=== PATIENT | male | born 1985 | race Caucasian/White ===

== ENCOUNTER 2016-10-06 14:02 | Emergency (ER) | payer SELFPAY ==
[2016-10-06 14:46] VITALS: BP 143/80
--- NOTE | 2016-10-06 15:36 | UC ---
Skin Complaint HPI - HPI Summary HPI Summary: Patient has had a lump on the right ear lobe for the past 3 years, the past 2 weeks it is red and tender thinks it is causing his migraines. left eye id is red and swollen - History of Current Complaint Chief Complaint: UCEye Time Seen by Provider: 10/06/16 15:01 Stated Complaint: SWOLLEN UNDER EAR EYE ISSUE Hx Obtained From: Patient Onset/Duration: Sudden Onset, Lasting Days Skin Exposure Onset/Duration: Minutes Ago Timing: Constant Onset Severity: Moderate Current Severity: Moderate Location: Discrete, Ear (Right) Character: Redness, Raised, Painful Aggravating: Touch Alleviating: Nothing - Allergy/Home Medications Allergies/Adverse Reactions: Allergies Allergy/AdvReac Type Severity Reaction Status Date / Time No Known Allergies Allergy Verified 01/22/16 12:47 Home Medications: Home Medications Acetaminophen [Eq Pain Reliever] 650 mg PO 10/06/16 [History] Review of Systems Constitutional: Negative Skin: Other - rec large cyst and Eyes: Eye Redness ENT: Negative Respiratory: Negative Cardiovascular: Negative Gastrointestinal: Negative Genitourinary: Negative Motor: Negative Neurovascular: Negative Musculoskeletal: Negative Neurological: Negative Psychological: Negative All Other Systems Reviewed And Are Negative: Yes PMH/Surg Hx/FS Hx/Imm Hx Previously Healthy: Yes Endocrine History Of: Denies: Diabetes, Thyroid Disease Cardiovascular History Of: Denies: Cardiac Disorders, Hypertension, Pacemaker/ICD Respiratory History Of: Denies: COPD, Asthma GI/ History Of: Denies: Gastroesophageal Reflux, Ulcer, Renal Disease Neurological History Of: Denies: CVA, Dementia, Seizures Other History Of: Negative For: Anticoagulant Therapy - Surgical History Surgical History: Yes Surgery Procedure, Year, and Place: collapsed lung - Family History Known Family History: Positive: Hypertension - Social History Alcohol Use: Daily Alcohol Amount: 2 BEERS/DAY Substance Use Type: Marijuana Substance Use Comment - Amount & Last Used: "ocassionally" Smoking Status (MU): Current Every Day Smoker Type: Cigarettes Amount Used/How Often: 1 ppd Physical Exam Triage Information Reviewed: Yes Appearance: Well-Appearing, Well-Nourished, Pain Distress Vital Signs: Initial Vital Signs Temp 98.7 F 10/06/16 14:41 Pulse 61 10/06/16 14:41 Resp 18 10/06/16 14:41 BP 143/80 10/06/16 14:41 Pulse Ox 100 10/06/16 14:41 Vital Signs Reviewed: Yes Eye Exam: Normal Eyes: Positive: Conjunctiva Clear ENT Exam: Normal ENT: Positive: Normal ENT inspection, Hearing grossly normal, Pharynx normal, TMs normal Dental Exam: Normal Neck exam: Normal Neck: Positive: Supple, Nontender, No Lymphadenopathy Respiratory Exam: Normal Respiratory: Positive: Chest non-tender, Lungs clear, Normal breath sounds Cardiovascular Exam: Normal Cardiovascular: Positive: RRR, No Murmur, Pulses Normal Abdominal Exam: Normal Abdomen Description: Positive: Nontender, No Organomegaly, Soft Bowel Sounds: Positive: Present Musculoskeletal Exam: Normal Musculoskeletal: Positive: Strength Intact, ROM Intact, No Edema Neurological Exam: Normal Neurological: Positive: Alert, Muscle Tone Normal Psychological Exam: Normal Skin: Positive: Other - left upper eye lid red and swollen, large infected sebacious cyst Course/Dx - Course Course Of Treatment: hx obtained, exam performed, meds reviewed, i and d of right ear cyst. abx prescribed. - Differential Diagnoses - Skin Complaint Differential Diagnoses: Abscess - Diagnoses Provider Diagnoses: infected sebaceous cyst. swollen left eyelid Discharge - Discharge Plan Condition: Stable Disposition: HOME Prescriptions: Cephalexin CAP* [Keflex CAP*] 500 mg PO BID #14 cap Patient Education Materials: Cyst (ED) Forms: *Work Release Additional Instructions: Take the medication as prescribed. Warm compresses to ear and eye will help with healing. Increase fluid intake. Ibuprofen or tylenol for pain.
== END 2016-10-06 15:48 | disposition home or self-care (01) ==
LOC: UCEAST 14:02
DX: L72.3 Sebaceous cyst (principal); H02.844 Edema of left upper eyelid; F17.210 Nicotine dependence, cigarettes, uncomplicated
CPT/HCPCS: 10060; 87070; 87077; 87205; 87640; 87641; 99212; G0463

== ENCOUNTER 2016-12-30 14:03 | Emergency (ER) | payer SELFPAY ==
[2016-12-30 14:15] VITALS: BP 147/105
--- NOTE | 2016-12-30 15:24 | UC ---
Elbow Pain - HPI Summary HPI Summary: PLAYING FOOTBALL WITH HIS SIBLINGS LAST NIGHT AND FELL. LANDED ON THE GRASS WITH HIS RIGHT ELBOW. HAS PAIN AND SWELLING. HAD SIMILAR INJURY SEVERAL MONTHS AGO AND AGAIN A WEEK AGO. ALSO HAS LEFT WRIST PAIN. - History of Current Complaint Chief Complaint: UCUpperExtremity Stated Complaint: ELBOW INJURY Time Seen by Provider: 12/30/16 15:14 Hx Obtained From: Patient Onset/Duration: Hours, Traumatic, Still Present Pain Intensity: 6 Pain Scale Used: 0-10 Numeric Location Of Pain: Is Discrete @ - LEFT ELBOW, RIGHT WRIST Character: Dull, Aching Aggravating Factor(s): Movement Alleviating Factor(s): Rest Associated Signs And Symptoms: Positive: Swelling - Allergies/Home Medications Allergies/Adverse Reactions: Allergies Allergy/AdvReac Type Severity Reaction Status Date / Time No Known Allergies Allergy Verified 12/30/16 14:11 PMH/Surg Hx/FS Hx/Imm Hx Previously Healthy: Yes Other History Of: Negative For: Anticoagulant Therapy - Surgical History Surgical History: Yes Surgery Procedure, Year, and Place: collapsed lung - Family History Known Family History: Positive: Hypertension - Social History Alcohol Use: Daily Alcohol Amount: 2 BEERS/DAY Substance Use Type: Marijuana Substance Use Comment - Amount & Last Used: "ocassionally" Smoking Status (MU): Heavy Every Day Tobacco Smoker Type: Cigarettes Amount Used/How Often: 1-1/2 ppd Review of Systems Constitutional: Negative Skin: Bruising Respiratory: Negative Cardiovascular: Negative Gastrointestinal: Negative Musculoskeletal: Arthralgia, Edema All Other Systems Reviewed And Are Negative: Yes Physical Exam Triage Information Reviewed: Yes Appearance: Well-Appearing, No Pain Distress, Well-Nourished Vital Signs: Initial Vital Signs Temp 99.9 F 12/30/16 14:11 Pulse 77 12/30/16 14:11 Resp 16 12/30/16 14:11 BP 147/105 12/30/16 14:11 Pulse Ox 99 12/30/16 14:11 Vital Signs Reviewed: Yes Eyes: Positive: Conjunctiva Clear ENT: Positive: Hearing grossly normal Neck: Positive: Supple Respiratory: Positive: No respiratory distress, No accessory muscle use Cardiovascular: Positive: Pulses Normal Abdomen Description: Positive: Soft Musculoskeletal: Positive: ROM Limited @ - LEFT ELBOW FLEXION, Edema @ - LEFT ELBOW, Other: - TTP OLECRANON PROCESS RIGHT ELBOW. MILDLY TENDER DIFFUSELY LEFT WRIST. NO SWELLING, FULL ROM. NO SNUFFBOX TENDERNESS Neurological: Positive: Alert Psychological: Positive: Age Appropriate Behavior Skin: Negative: rashes Elbow Pain Course/Dx - Differential Dx/Diagnosis Provider Diagnoses: 1. RIGHT OLECRANON BURSITIS. 2. LEFT WRIST SPRAIN Discharge - Discharge Plan Condition: Stable Disposition: HOME Prescriptions: Naproxen Sodium [Naproxen Sodium 500 MG TAB] 500 mg PO BID PRN #30 tab PRN Reason: Pain Patient Education Materials: Elbow Bursitis (ED), Wrist Sprain (ED) Forms: *Work Release Referrals: Jean Paul Luis MD [Medical Doctor] - If Needed Additional Instructions: CALL THE NUMBER BELOW FOR ASSISTANCE IN ESTABLISHING WITH A PCP An additional resource available to assist in finding the appropriate physician for your health care needs is the [facility] ([facility]). You may contact them by calling [phone]. CONSERVATIVE MANAGEMENT WITH REST, COMPRESSION, AND ANTI-INFLAMMATORIES. FOLLOW- UP WITH [facility] IF YOU ARE NOT IMPROVING EXPECTED OVER THE NEXT FEW WEEKS.
== END 2016-12-30 15:41 | disposition home or self-care (01) ==
LOC: UCEAST 14:03
DX: M70.21 Olecranon bursitis, right elbow (principal); S63.502A Unspecified sprain of left wrist, initial encounter; F17.210 Nicotine dependence, cigarettes, uncomplicated; W19.XXXA Unspecified fall, initial encounter; Y93.61 Activity, american tackle football; Y92.9 Unspecified place or not applicable
CPT/HCPCS: 99213; G0463

== ENCOUNTER 2017-01-07 20:41 | Emergency (ER) | payer SELFPAY ==
[2017-01-07 21:06] VITALS: BP 138/81
[2017-01-07] MEDS ORDERED: Lidocaine 1% MPF* 2 ML VIAL INJ ONE (21:40)
[2017-01-07] MEDS ORDERED: Tetan/Diph/Pertus SYR(Tdap)* 0.5 ML SYR(BOOSTRIX) use SYR IM ONE (22:22)
--- NOTE | 2017-01-07 22:51 | UC ---
Maricel Stuart Edward, scribed for Murphy Zepeda MD on 01/07/17 at 2124 . Laceration HPI - HPI Summary HPI Summary: 31 y/o male presents to [facility] with L index finger laceration. Patient was making hot dogs when his pocket knife slipped and cut his finger. Laceration occurred around 4 hours ago. Pain due to laceration is rated at a 7/10 at triage. Patient says that bleeding has not stopped since the injury. - History Of Current Complaint Chief Complaint: UCLaceration Stated Complaint: FINGER LACERATION Time Seen by Provider: 01/07/17 21:21 Hx Obtained From: Patient Laceration Location: Finger - L index Mechanism Of Injury: Sharp Trauma - Pocket knife Onset/Duration: Sudden Onset Severity: Moderate Pain Intensity: 7 Pain Scale Used: 0-10 Numeric - Allergies/Home Medications Allergies/Adverse Reactions: Allergies Allergy/AdvReac Type Severity Reaction Status Date / Time No Known Allergies Allergy Verified 01/07/17 21:06 Home Medications: Home Medications NK [No Home Medications Reported] 01/07/17 [History Confirmed 01/07/17] PMH/Surg Hx/FS Hx/Imm Hx Previously Healthy: Yes Other History Of: Negative For: Anticoagulant Therapy - Surgical History Surgical History: Yes Surgery Procedure, Year, and Place: collapsed lung - Family History Known Family History: Positive: Hypertension - Social History Alcohol Use: Daily Alcohol Amount: 6 pk per day Substance Use Type: Marijuana Substance Use Comment - Amount & Last Used: "ocassionally" Smoking Status (MU): Heavy Every Day Tobacco Smoker Type: Cigarettes Amount Used/How Often: 1-1/2 ppd Review of Systems Constitutional: Negative Skin: Other - Laceration on L index finger Eyes: Negative ENT: Negative Respiratory: Negative Cardiovascular: Negative Gastrointestinal: Negative Genitourinary: Negative Motor: Negative Neurovascular: Negative Musculoskeletal: Negative Neurological: Negative Psychological: Negative All Other Systems Reviewed And Are Negative: Yes Physical Exam Triage Information Reviewed: Yes Appearance: Well-Appearing, No Pain Distress Vital Signs: Initial Vital Signs Temp 97.8 F 01/07/17 21:00 Pulse 97 01/07/17 21:00 Resp 20 01/07/17 21:00 BP 138/81 01/07/17 21:00 Pulse Ox 100 01/07/17 21:00 Vital Signs Reviewed: Yes Eye Exam: Normal ENT: Positive: Normal ENT inspection Neck: Positive: Supple, Nontender Respiratory: Positive: Lungs clear, Normal breath sounds Cardiovascular: Positive: RRR Abdomen Description: Positive: Nontender, Soft Bowel Sounds: Positive: Present Musculoskeletal: Positive: Strength Intact, ROM Intact Neurological: Positive: Alert Psychological Exam: Normal Skin: Positive: Other - 2 cm laceration on L index finger Laceration Repair - Laceration Repair 1 Description: Irregular - Dog ear. Used Hibiclens to clean Laceration Size After Repair: Length (cm) - 2 Contamination/FB Removal: None Type Injection: Local Anesthesia Used: 1.0% Lido Cleansing Completed Via Routine Prep: Yes Closure Material: Sutures - 6 total Closure Method: Single Layer Suture Of: Skin Suture Type: Prolene - 5-0 Prolene Laceration Course/Dx - Course/Dx Course Of Treatment: MEDICATIONS REVIEWED. TDAP GIVEN IN CLINIC. LACERATION CLEAN, IT BLED PROFUSELY. NO ANTIBIOTICS AT THIS TIME. - Differential Dx - Laceration/Wound Provider Diagnoses: LEFT INDEX FINGER LACERATION Discharge - Discharge Plan Condition: Stable Disposition: HOME Patient Education Materials: Finger Laceration (ED) Referrals: No Primary Care Phys,NOPCP [Primary Care Provider] - Additional Instructions: FOLLOW UP WITH YOUR DOCTOR. YOU GOT YOUR TETANUS SHOT TODAY IN THE CLINIC. SUTURES OUT IN 8-10 DAYS. GET RECHECKED FOR ANY WORSENING OF YOUR CONDITION OR QUESTIONS OR CONCERNS. The documentation as recorded by the Maricel berry Edward accurately reflects the service I personally performed and the decisions made by me, Murphy Zepeda MD.
== END 2017-01-07 22:46 | disposition home or self-care (01) ==
LOC: UCEAST 20:41
DX: S61.211A Laceration without foreign body of left index finger without damage to nail, initial encounter (principal); F12.90 Cannabis use, unspecified, uncomplicated; F17.210 Nicotine dependence, cigarettes, uncomplicated; W26.0XXA Contact with knife, initial encounter
CPT/HCPCS: 12001; 90471; 90715; 99211; G0463

== ENCOUNTER 2017-01-17 19:47 | Emergency (ER) | payer SELFPAY ==
[2017-01-17 19:59] VITALS: BP 118/70
--- NOTE | 2017-01-17 20:51 | UC ---
Skin Complaint HPI - HPI Summary HPI Summary: 31 y/o male present to the urgent care for suture removal of his LF # 2 index. Pt reports stiches were placed in 01/07/2017 and wound is healing well and no signs of infection, Pt denies fever, SOB, chest pain, N/V/D. Pt has not other complains. - History of Current Complaint Chief Complaint: UCSkin Time Seen by Provider: 01/17/17 20:33 Stated Complaint: STITCHES REMOVED Hx Obtained From: Patient Onset/Duration: Lasting Days, Still Present Skin Exposure Onset/Duration: Days Ago Timing: Constant Onset Severity: Mild Current Severity: None Pain Intensity: 0 Pain Scale Used: 0-10 Numeric Location: Hand (Right) - Left # 2 phalanx Aggravating: Nothing Alleviating: Nothing Associated Signs & Symptoms: Positive: Negative - Allergy/Home Medications Allergies/Adverse Reactions: Allergies Allergy/AdvReac Type Severity Reaction Status Date / Time No Known Allergies Allergy Verified 01/07/17 21:06 Review of Systems Constitutional: Negative Skin: Other - Stitches in keft #2 phalanx Eyes: Negative ENT: Negative Respiratory: Negative Cardiovascular: Negative Gastrointestinal: Negative Genitourinary: Negative Motor: Negative Neurovascular: Negative Musculoskeletal: Negative Neurological: Negative Psychological: Negative All Other Systems Reviewed And Are Negative: Yes PMH/Surg Hx/FS Hx/Imm Hx Previously Healthy: Yes Other History Of: Negative For: Anticoagulant Therapy - Surgical History Surgical History: Yes Surgery Procedure, Year, and Place: collapsed lung - Family History Known Family History: Positive: Hypertension - Social History Occupation: Employed Full-time Lives: With Family Alcohol Use: Daily Alcohol Amount: 6 pk per day Substance Use Type: Marijuana Substance Use Comment - Amount & Last Used: 2-3 times a week Smoking Status (MU): Heavy Every Day Tobacco Smoker Type: Cigarettes Amount Used/How Often: 1-1/2 ppd Physical Exam Triage Information Reviewed: Yes Appearance: Well-Appearing, No Pain Distress, Well-Nourished, Thin Vital Signs: Initial Vital Signs Temp 98.5 F 01/17/17 19:54 Pulse 63 01/17/17 19:54 Resp 18 01/17/17 19:54 BP 118/70 01/17/17 19:54 Pulse Ox 99 01/17/17 19:54 Vital Signs Reviewed: Yes Eye Exam: Normal Eyes: Positive: Conjunctiva Clear - PERRLA , EOMI, Fundi grossly normal ENT Exam: Normal ENT: Positive: Normal ENT inspection, Hearing grossly normal, Pharynx normal, TMs normal Dental Exam: Normal Neck exam: Normal Neck: Positive: Supple, Nontender, No Lymphadenopathy Respiratory Exam: Normal Respiratory: Positive: Chest non-tender, Lungs clear, Normal breath sounds Cardiovascular Exam: Normal Cardiovascular: Positive: RRR, No Murmur, Pulses Normal, Brisk Capillary Refill Abdominal Exam: Normal Abdomen Description: Positive: Nontender, No Organomegaly, Soft. Negative: CVA Tenderness (R), CVA Tenderness (L) Bowel Sounds: Positive: Present Musculoskeletal Exam: Normal Neurological Exam: Normal Psychological Exam: Normal Skin Exam: Normal Skin: Positive: Other - Left #2 phalanx with sutured laceration, healing well no signs of infection. FROM, neurovascular intact. [address] Course/Dx - Course Course Of Treatment: 31 y/o male present to the urgent care for suture removal of his LF # 2 index. Pt reports stiches were placed in 01/07/2017 and wound is healing well and no signs of infection, Pt denies fever, SOB, chest pain, N/V/ D. Hx obtained. PE abnormal findings:Left #2 phalanx with sutured laceration , healing well no signs of infection. FROM, neurovascular intact. [address] 6 stiches removed w/o any difficulty. Pt tolerated well procedure. Neurovascular intact. Bacitracin place on wound and non adherent dressing applied. Advised to keep wound clean and dry and apply Bacitracin prn. If any signs of infection advised to return to the clinic or f/u with PCP. Pt understood and agreed. - Differential Diagnoses - Skin Complaint Differential Diagnoses: Cellulitis, Other - suture removal - Diagnoses Provider Diagnoses: 1- Suture removal of left #2 phalax laceration Discharge - Discharge Plan Condition: Stable Disposition: HOME Patient Education Materials: Stitches Removal (ED) Referrals: [facility] [Outside] No Primary Care Phys,NOPCP [Primary Care Provider] - Additional Instructions: PLease keep wound dry and clean. Apply Bacitracin TID prn. If you signs of infection develops you should either follow up with your PCP or return to the urgent care for further evaluation and treatment.
== END 2017-01-17 21:07 | disposition home or self-care (01) ==
LOC: UCEAST 19:47
DX: Z48.02 Encounter for removal of sutures (principal)
CPT/HCPCS: 99211; G0463

== ENCOUNTER 2017-12-20 14:17 | Emergency (ER) | payer SELFPAY ==
[2017-12-20 14:27] VITALS: BP 156/102
--- NOTE | 2017-12-20 14:44 | UC ---
Minor Trauma HPI - HPI Summary HPI Summary: Patient is a 31-year-old male presenting to the with chief complaint of left sided rib pain as well as left elbow pain after falling 4 days ago. He endorses worsening pain over the left ribs despite OTC medications. He states he was skateboarding when he fell to his left side with his elbow tucked under him and fell directly onto his rib cage. Denies any shortness of breath or chest pain. He endorses shallow breathing due to pain with deep breaths. Denies any chest pain. Eating and drinking okay. Denies any gross hematuria. Denies any abdominal pain otherwise. Denies any back pain. Vital signs are stable other than an increase in blood pressure most likely due to pain. - History of Current Complaint Chief Complaint: UCUpperExtremity Stated Complaint: RIB PAIN Time Seen by Provider: 12/20/17 14:29 Hx Obtained From: Patient Onset/Duration: Sudden Onset Severity Initially: Moderate Severity Currently: Moderate - Reassuring Pain Intensity: 3 Pain Scale Used: 0-10 Numeric Mechanism Of Injury: Direct Blow Aggravating Factor(s): Ambulation, Deep Breaths Alleviating Factor(s): Nothing - Risk Factors Penetrating Injury Risk Factors: Negative Compartment Syndrome Risk Factors: Pain - Allergies/Home Medications Allergies/Adverse Reactions: Allergies Allergy/AdvReac Type Severity Reaction Status Date / Time No Known Allergies Allergy Verified 12/20/17 14:27 Home Medications: Home Medications Aspirin TAB* [Aspirin 325 MG TAB*] 2 tab PO Q6HR PRN 12/20/17 [History Confirmed 12/20/17] PMH/Surg Hx/FS Hx/Imm Hx Previously Healthy: Yes Other History Of: Negative For: Anticoagulant Therapy - Surgical History Surgical History: Yes Surgery Procedure, Year, and Place: collapsed lung-5 years ago - Family History Known Family History: Positive: Hypertension - Social History Occupation: Employed Full-time Lives: With Family Alcohol Use: Daily Alcohol Amount: 2-3 beers/day Substance Use Type: Marijuana Substance Use Comment - Amount & Last Used: 2-3 times a week Smoking Status (MU): Heavy Every Day Tobacco Smoker Type: Cigarettes Amount Used/How Often: 1PPD Review of Systems Constitutional: Negative Respiratory: Negative Cardiovascular: Negative Motor: Negative Neurovascular: Negative Neurological: Negative Is Patient Immunocompromised?: No All Other Systems Reviewed And Are Negative: Yes Physical Exam Triage Information Reviewed: Yes Appearance: Well-Appearing, Well-Nourished Vital Signs: Initial Vital Signs Temp 99.2 F 12/20/17 14:22 Pulse 87 12/20/17 14:22 Resp 16 12/20/17 14:22 BP 156/102 12/20/17 14:22 Pulse Ox 97 12/20/17 14:22 Vital Signs Reviewed: Yes Neck exam: Normal Neck: Positive: Supple, No Lymphadenopathy Respiratory Exam: Normal Respiratory: Positive: Chest non-tender, Lungs clear Cardiovascular Exam: Normal Musculoskeletal: Positive: Strength Intact Neurological Exam: Normal Neurological: Positive: Alert Psychological: Positive: Normal Response To Family Skin Exam: Normal Minor Trauma Course/Dx - Course Course Of Treatment: Patient is noted to have a high blood pressure, most likely secondary to pain distress as patient has no history of hypertension. Left-sided rib pain and left elbow pain. Full range of motion without limitations to the elbow. No ecchymosis or abrasions are seen to the left side. No pain on palpation to the spleen. No evidence of splenomegaly. Continues to eat and drink okay. Denies hematuria. He has not been taking anything [id number] for relief. X-ray obtained which shows no acute fractures. I have given him strict return precautions to go to the ED for any worsening or changing symptoms. He is okay with this plan at discharge. - Differential Dx/Diagnosis Differential Diagnosis/HQI/PQRI: Fracture, Hematoma(s) Provider Diagnoses: Rib Contusion Discharge - Sign-Out/Discharge Documenting (check all that apply): Discharge/Admit/Transfer - Discharge Plan Condition: Stable Disposition: HOME Patient Education Materials: Rib Contusion (ED) Forms: *Work Release Referrals: No Primary Care Phys,NOPCP [Primary Care Provider] - Additional Instructions: Please go to the ED for any worsening symptoms Ibuprofen 600mg three times daily for 3-4 days for inflammation - Billing Disposition and Condition Condition: STABLE Disposition: Home
--- NOTE | 2017-12-20 15:09 | RAD ---
INDICATION: Left rib pain 3 days after skateboarding injury. COMPARISON: None. TECHNIQUE: 6 views of the left ribs were obtained. FINDINGS: An external metallic marker is noted overlying the left lower ribs. No fracture or significant focal osseous abnormality is seen. No pneumothorax is apparent. Limited views demonstrate grossly clear lungs. IMPRESSION: No radiographically apparent displaced rib fracture or pneumothorax. If the patient's symptoms persist, follow-up imaging is recommended.
== END 2017-12-20 15:26 | disposition home or self-care (01) ==
LOC: UCEAST 14:17
DX: S20.20XA Contusion of thorax, unspecified, initial encounter (principal); V00.131A Fall from skateboard, initial encounter; Y93.51 Activity, roller skating (inline) and skateboarding; Y92.9 Unspecified place or not applicable; F17.210 Nicotine dependence, cigarettes, uncomplicated; Z82.49 Family history of ischemic heart disease and other diseases of the circulatory system
CPT/HCPCS: 99211; G0463

== ENCOUNTER → 2018-08-16 18:49 | Emergency (ER) | payer OTHER ==
[~2018-08-16 18:49] MED LIST: Amoxicillin/Clavulanate TAB* 500 MG PO ONE; Benzocaine/Butamben/Tetracain (CETACAINE - SINGLE USE) 5 gm TOPICAL ONE; Iohexol 300* (CONTRAST) 10 ML SDV IV ONE; Nicotine PATCH 21 MG/24 HR* PATCH ONE; Nicotine PATCH 7 MG/24 HR* PATCH TRANSDERM ONE
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
[2018-08-16 19:18] LABS: ABS Basophils 0.1 10^3/ul (0-0.2); ABS Eosinophils 0.1 10^3/ul (0-0.6); ABS Lymphocytes 2.2 10^3/ul (1.0-4.8); ABS Monocytes 0.4 10^3/ul (0-0.8); ABS Neutrophils 7.2 10^3/ul (1.5-7.7); ABS Nucleated RBC 0 10^3/ul; Eosinophil % 1.2 %; Hematocrit 46 % (42-52); Hemoglobin 15.9 g/dl (14.0-18.0); Lymphocyte % 21.6 %; Mean Corpuscular HGB Conc 35 g/dl (31-36); Mean Corpuscular Hemoglobin 33 pg (27-31); Mean Corpuscular Volume 95 fL (80-94); Mean Platelet Volume 6.4 fL (7.4-10.4); Nucleated Red Blood Cells % 0; Platelet Count 262 10^3/ul (150-450); Red Blood Count 4.83 10^6/ul (4.00-5.40); Red Cell Distribution Width 12 % (10.5-15); White Blood Count 10.1 10^3/ul (3.5-10.8)
[2018-08-16 19:33] LABS: Albumin 4.5 g/dL (3.2-5.2); BUN/Creatinine Ratio 14.1 (8-20); Calcium 9.1 mg/dL (8.6-10.3); EGFR African American 141.4 (>60); EGFR Non-African American 116.9 (>60); Globulin 2.3 g/dL (2-4); Potassium 4.2 mmol/L (3.5-5.0); Total Bilirubin 0.5 mg/dL (0.2-1.0); Total Protein 6.8 g/dL (6.4-8.9)
[2018-08-16 21:26] VITALS: BP 159/105
== END | disposition home or self-care (01) ==
LOC: ED 18:49
DX: S09.90XA Unspecified injury of head, initial encounter (principal); S01.01XA Laceration without foreign body of scalp, initial encounter; S01.511A Laceration without foreign body of lip, initial encounter; V43.62XA Car passenger injured in collision with other type car in traffic accident, initial encounter; Y92.410 Unspecified street and highway as the place of occurrence of the external cause; R07.89 Other chest pain; R06.02 Shortness of breath; M25.562 Pain in left knee; M25.561 Pain in right knee; F17.210 Nicotine dependence, cigarettes, uncomplicated
CPT/HCPCS: 12002; 12013; 12052; 36415; 70450; 71260; 72125; 74177; 80053; 83605; 85025; 99283; A9270-GY; Q9967